=== PATIENT | male | born 1940 | race Caucasian/White ===

== ENCOUNTER 2017-05-25 10:23 | Emergency (ER) | payer MEDICARE ==
[~2017-05-25] VITALS: Ht 172.7 cm; Wt 75.0 kg
[2017-05-25 10:26] VITALS: BP 175/100; PULSE 65; RESP 16; O2SAT 99
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
[2017-05-25 12:23] VITALS: BP 141/69; PULSE 88; RESP 20; O2SAT 98
== END 2017-05-25 12:24 | disposition home or self-care (01) ==
LOC: SED 10:23
DX: S50.12XA Contusion of left forearm, initial encounter (principal); M25.552 Pain in left hip; V86.59XA Driver of other special all-terrain or other off-road motor vehicle injured in nontraffic accident, initial encounter; Y93.89 Activity, other specified; Y92.9 Unspecified place or not applicable; Y99.8 Other external cause status; Z88.8 Allergy status to other drugs, medicaments and biological substances